=== PATIENT | female | born 1995 | race Caucasian/White ===

== ENCOUNTER 2019-10-22 23:06 | Emergency (ER) | payer MEDICAID ==
[~2019-10-22] VITALS: Ht 165.1 cm; Wt 80.0 kg
[2019-10-23 00:51] VITALS: BP 110/66
== END 2019-10-23 01:05 | disposition home or self-care (01) ==
LOC: ER 23:06
DX: Z00.01 Encounter for general adult medical examination with abnormal findings (principal)
CPT/HCPCS: 99281